=== PATIENT | female | born 1995 | race African-American/Black ===

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

== ENCOUNTER 2017-02-25 12:05 | Emergency (ER) | payer OTHER ==
[~2017-02-25] VITALS: Ht 165.1 cm; Wt 65.9 kg
[2017-02-25 15:20] LABS: INFLUENZA TYPE A NEGATIVE FOR TYPE A (NEGATIVE); INFLUENZA TYPE B NEGATIVE FOR TYPE B (NEGATIVE)
[2017-02-25] MEDS ORDERED: IBUPROFEN 800 MG TABLET PO ONE (16:30)
[2017-02-25] MEDS ORDERED: ONDANSETRON HCL 4 MG TABLET PO ONE (16:30)
[2017-02-25 16:52] VITALS: BP 121/49
== END 2017-02-25 17:00 | disposition home or self-care (01) ==
LOC: EMS 12:08
DX: B34.9 Viral infection, unspecified (principal); R51 Headache; R11.0 Nausea; M79.1 Myalgia
CPT/HCPCS: 87804; 99284; Q0162

== ENCOUNTER 2017-05-09 20:18 | Emergency (ER) | payer OTHER ==
[~2017-05-09] VITALS: Ht 167.6 cm; Wt 68.2 kg
[2017-05-09 20:20] VITALS: BP 133/73
== END 2017-05-09 21:38 | disposition home or self-care (01) ==
LOC: EMS 21:02
DX: Z77.098 Contact with and (suspected) exposure to other hazardous, chiefly nonmedicinal, chemicals (principal)
CPT/HCPCS: 99282

== ENCOUNTER 2018-02-21 19:54 | Emergency (ER) | payer OTHER ==
[~2018-02-21] VITALS: Ht 165.1 cm; Wt 68.2 kg
[2018-02-21 20:16] VITALS: BP 122/86
[2018-02-21 20:42] LABS: BASOPHILS % (AUTO) 0.9 % (0.0-2.0); EOSINOPHILS % (AUTO) 0.9 % (1.0-6.0); HEMOGLOBIN 14.2 g/dL (12.0-16.0); LYMPHOCYTES % (AUTO) 20.2 % (22.0-44.0); MEAN CORPUSCULAR HEMOGLOBIN 29.3 pg (26.0-34.0); MEAN CORPUSCULAR HGB CONC 33.7 G/dL (31.0-37.0); MEAN CORPUSCULAR VOLUME 87 fL (80-100); MONOCYTES # (AUTO) 0.5 K/uL (0.1-1.0); MONOCYTES % (AUTO) 10.3 % (2.0-9.0); NEUTROPHILS # (AUTO) 3.4 K/uL (1.8-7.7); NEUTROPHILS % (AUTO) 67.7 % (40.0-70.0); PLATELET COUNT (AUTO) 207 K/uL (150-450); RED BLOOD CELL COUNT(AUTO) 4.83 MIL/uL (4.00-5.20); RED CELL DISTRIBUTION WIDTH 13.5 % (11.5-14.5)
== END 2018-02-21 22:08 | disposition home or self-care (01) ==
LOC: EMS 19:55
DX: O02.1 Missed abortion (principal)
CPT/HCPCS: 86901